=== PATIENT | female | born 1985 | race Caucasian/White ===

== ENCOUNTER → 2018-05-05 | Outpatient (CLI) | payer OTHER ==
--- NOTE | 2018-05-05 17:49 | US ---
EXAM DESCRIPTION: Breast,Right: Ultrasound CLINICAL HISTORY: 32 yearsFemaleF/U NEG BX. "My surgeon is considering removing the abnormal tissue." COMPARISON: Digital diagnostic tomosynthesis RIGHT breast on this visit. Previous 2-D diagnostic mammography outside imaging facility on 10/02/2017. TECHNIQUE: Transcutaneous scanning of the right breast utilizing lord-scale and Doppler modes. Scanning performed by the drawbridge operator and Dr. Velazquez. FINDINGS: Scanning of the middle third of the right breast around the posterior nipple line in the upper inner quadrant and lower inner quadrants. Overlying tissue is mostly fatty echotexture. In the region of interest, there are hypoechoic regions almost masslike with echogenic calcifications and shadowing and wider than tall orientation. No abnormal vascularity. There are also bands of fibroglandular and fatty tissue mixed with these hypoechoic regions. No distinct cysts. No parenchymal edema. No abnormal vascularity. Overlying skin is unremarkable. The appearance is consistent with fat necrosis seen on the digital tomosynthesis of the right breast today. IMPRESSION: 1. Bi-Rads Category 3: Probably Benign Findings. 2. Please refer to digital diagnostic tomosynthesis of the right breast examination today and report. The FINDINGS and the FOLLOW-UP plan were reviewed in person with the patient after the examination. Written communication explaining the IMPRESSION and FOLLOW-UP will be mailed to the patient and referring care provider. Electronically signed by: Jose Velazquez MD 05/05/2018 5:48 PM SURVEILLANCE INVESTIGATOR
--- NOTE | 2018-05-06 15:59 | MAM ---
EXAM DESCRIPTION: 3D Diagnostic, Right: Digital Mammography CLINICAL HISTORY: 32 yearsFemaleFOLLOW UP FOR NEG BX follow-up fatty necrosis right breast.. May have surgery to remove the necrotic tissue. COMPARISON: Prior 2-D digital bilateral mammography 10/02/2017. Targeted right breast ultrasound on the same visit in September 2017.. Targeted right breast ultrasound included with this examination.. TECHNIQUE: Right breast CC LM projection full-field images, digital mammographic tomosynthesis technique. Magnification 2-D digital central right breast LM and CC projections. CAD not utilized. FINDINGS: The breast parenchymal density pattern is: Scattered areas of fibroglandular density. No skin thickening or nipple retraction Whorled, dense fibroglandular tissue with scattered radiolucent spaces and heterogeneous calcifications of multiple sizes and shapes. Predominantly middle third and posterior third of the right breast around the posterior nipple line. Some of the curvilinear calcifications conform to the margins of the radiolucent fatty masses. This is consistent with fatty necrosis. No significant change from the prior study. Ultrasound: Scanning of the middle third of the right breast around the posterior nipple line in the upper inner quadrant and lower inner quadrants. Overlying tissue is mostly fatty echotexture. In the region of interest, there are hypoechoic regions almost masslike with echogenic calcifications and shadowing and wider than tall orientation. No abnormal vascularity. There are also bands of fibroglandular and fatty tissue mixed with these hypoechoic regions. No distinct cysts. No parenchymal edema. No abnormal vascularity. Overlying skin is unremarkable. The appearance is consistent with fat necrosis seen on the digital tomosynthesis of the right breast today. IMPRESSION: BI-RADS CATEGORY: 3 - PROBABLY BENIGN. Management: Short interval (6-month) follow-up targeted right breast ultrasound and continued surveillance diagnostic digital right breast mammography.. The FINDINGS and the FOLLOW-UP plan were reviewed in person with the patient after the examination. Written communication explaining the IMPRESSION and FOLLOW-UP will be mailed to the patient and referring care provider. Electronically signed by: Jose Velazquez MD 05/06/2018 3:58 PM FIBERGLASS BONDING MACHINE TENDER
== END ==
LOC: MAMMO 09:58
DX: N64.4 Mastodynia (principal); N63.12 Unspecified lump in the right breast, upper inner quadrant
CPT/HCPCS: 76641; 77065; G0279